=== PATIENT | male | born 1970 | race Caucasian/White ===

== ENCOUNTER 2021-02-22 14:56 | Emergency (ER) | payer MEDICARE, OTHER ==
[2021-02-22 19:05] LABS: HEMOGLOBIN 11.1 gm/dl (14.0-17.5); RED BLOOD COUNT 3.66 M/UL (4.20-5.50); WHITE BLOOD COUNT 1.7 K/UL (4.5-11.0)
[2021-02-22 19:22] LABS: BUN/CREATININE RATIO 8 (0-10)
== END 2021-02-22 20:00 | disposition home or self-care (01) ==
LOC: ER1 14:56
PROVIDERS: Physician Assistant
DX: K74.60 Unspecified cirrhosis of liver (principal); D61.818 Other pancytopenia; T85.590A Other mechanical complication of bile duct prosthesis, initial encounter
CPT/HCPCS: 80053; 85025; 99283

== ENCOUNTER → 2022-04-27 | Outpatient (CLI) | payer MEDICARE, OTHER | LOC: LAB 16:47 | DX: K74.60 Unspecified cirrhosis of liver (principal) | CPT/HCPCS: 36415; 80076; 85610 ==

== ENCOUNTER → 2022-07-07 | Day surgery (SDC) | payer MEDICARE, OTHER ==
[~2022-07-07] VITALS: Ht 167.6 cm; Wt 100.7 kg
[~2022-07-07] MED LIST: ACTIGALL 300MG300 MG PO; ALLERGY RELIEF10 M1 PO; BUSPIRONE HCL5 MG PO; CITALOPRAM HBR10 MG PO; FERROUS SULFAT325 M2 PO; FISH OIL 1,0001 EACH PO; HYDROXYZINE HCL25 MG PO; LEVOTHYROXINE50 MC1 PO; LISINOPRIL30 MG PO; PROPRANOLOL HCL20 MG PO; PROTONIX40 MG PO; VITAMIN C500 MG PO; VITAMIN D21250 MCG PO
== END | disposition home or self-care (01) ==
LOC: OR 06:25
DX: K21.00 Gastro-esophageal reflux disease with esophagitis, without bleeding (principal); K76.6 Portal hypertension; K31.89 Other diseases of stomach and duodenum; K29.71 Gastritis, unspecified, with bleeding; K44.9 Diaphragmatic hernia without obstruction or gangrene; K74.60 Unspecified cirrhosis of liver; I10 Essential (primary) hypertension; D64.9 Anemia, unspecified; E03.9 Hypothyroidism, unspecified; Z79.899 Other long term (current) drug therapy; Z88.5 Allergy status to narcotic agent; Z88.8 Allergy status to other drugs, medicaments and biological substances
CPT/HCPCS: J2704; J7040